=== PATIENT | female | born 1960 ===

== ENCOUNTER 2024-03-09 09:42 | Outpatient (AMB) | payer OTHER, SELFPAY ==
--- NOTE | 2024-03-09 09:56 | MHC.OFFVIS ---
Vital Signs 03/09/24 09:57 Height 5 ft 3 in Weight 155 lb BMI 27.5 BP 100/88 Blood Pressure Location Rt brachial Position Sitting Pulse 84 Pulse Source Pulse Oximeter Pulse Oximetry (%) 98 Oxygen Delivery Method Room Air Intake Visit Reasons: ENP-Persistent Dizziness/Headaches-CONF Intake Note: Patient presents for persistent dizziness and headaches, Dizziness and sharp pain on the side of quaker that last very short period Allergies atorvastatin [From Lipitor] Allergy (Severe, Verified 03/09/24 09:59) muscle pain HPI Comments Details: Right-handed 63-yr-old female presents for new pt evaluation of headache disorder. Pt reports she has been having epsiodes of dizziness, blurry vision and head pain for many years. Had eye exam, and was given glasses. PMH and ROS are notable for:? General: feeling tired after brief physical activity. H/o right breast cancer- pt states around 2010- lumpectomy, Radiation tx. Has been having left breast s/s- itching- referred for US. f/b [facility] breast clinic. Musckuloskeletal: arthritis. but no usual neck or back pain Cramps: leg cramps Mood d/o: Anxiety- may feel this CV disease: HLD- on statin. h/o Anemia Endocrine or metabolic d/o: Pre-Diabetes GI d/o: Constipation, GERD SOFTWARE SUPPORT ENGINEER: postmenopausal Family history of migraine or other headache disorder: mother, sister, aunt Pertinent denials include: Denies diplopia. History of concussion/head injury, Sleep d/o, Respiratory d/o, Clotting or hematology d/o, Endocrine or metabolic d/o, History of seizure, syncope, or drop attacks Lifestyle considerations: Sleep routine: Usual bedtime: 9pm and wake-up time: 6am Sleep difficulties: Denies, but may ruminate if something is on her mind. Sometimes has leg cramps. Restless legs- cannot stay still, creepy crawling sensation. 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 Typical headache characteristics: Prodrome symptoms: unsure Aura: none Pain intensity: varies, comes on severe Location, quality, characteristics: Brief sharp pain in the temples f/b throbbing pain and not right in space dizziness Associated symptoms: blurry vision, photophobia, nausea, lightheadedness, fatigue, cognitive difficulties, activity intolerance. Postdrome: unsure Triggers: bending over and getting back up Time of day: During the day Duration and Frequency: daily, last for hours. How does headache impact your life? has to sit down Current acute medication use/interventions: nothing. sometimes uses OTC tear gtts Current preventative medication use: none Non-pharmacological interventions: rest PFSH Surgical History (Updated 03/09/24 @ 10:00 by JESSICA Toth) Hx of appendectomy H/O arthroscopic knee surgery H/O lumpectomy Family History (Updated 03/09/24 @ 10:01 by JESSICA Toth) Father Heart disease Parkinson disease Mother Cancer Diabetes Social History (Updated 03/09/24 @ 10:01 by JESSICA Toth) Alcohol intake: never Patient Tobacco Use Status: Never used Tobacco Physical Exam Vital Signs: Last Vital Signs Pulse 84 03/09/24 09:57 BP 100/88 03/09/24 09:57 Pulse Ox 98 03/09/24 09:57 Oxygen Delivery Method Room Air 03/09/24 09:57 BMI result Body Mass Index 27.5 Const Orientation/consciousness: patient oriented x3 HEENT Head: Yes normocephalic Resp Effort & Inspection: normal respiratory effort and able to speak in complete sentences Neuro Other: Mild bilateral facial tenderness on palpation General: patient oriented x3 Cranial nerves: Yes CN's II-XII intact bilaterally Cognition (Neuro): normal cognition Gait exam (Neuro): Normal gait present Motor exam (neuro): 5/5 motor strength present throughout Deep tendon reflexes (DTR's): Right triceps reflex intensity grade: 2+, Left triceps reflex intensity grade: 2+, Rt Biceps (C5, C6): 2+, Left biceps reflex intensity grade: 2+, Right brachioradialis reflex intensity grade: 2+, Left brachioradialis reflex intensity grade: 2+, Right patellar reflex intensity grade: 2+ and Left patellar reflex intensity grade: 2+ Coordination: [id number] test normal, tandem gait normal and Romberg test negative Pupils: Normal pupillary reactivity/response: bilateral Psych Appearance: grossly normal Mental Status: mental status grossly normal Speech and movement: Normal speech and movement present Affect: normal affect Attitude: cooperative Thought process: Normal thought process present Assessment & Plan Assessment & Plan (1) Headache: Code(s): R51.9 - Headache, unspecified Category: Medical (2) Blurry vision: Code(s): H53.8 - Other visual disturbances Category: Medical (3) Dizziness: Code(s): R42 - Dizziness and giddiness Category: Medical (4) Anemia: Code(s): D64.9 - Anemia, unspecified Category: Medical (5) Leg cramps: Code(s): R25.2 - Cramp and spasm Category: Medical (6) Restless leg syndrome: Code(s): G25.81 - Restless legs syndrome Category: Medical Plan Pt advised to undergo: Lab workup for common etiologies of headache, vision changes, fatigue, and restless leg. Brain MRI with and without contrast to assess for secondary etiologies of headache, dizziness, blurry vision For overall headache management: Optimize good self-care, including but not limited to maintaining a healthy diet, adequate fluid intake, adequate sleep, and engaging in regular physical activity. Track headaches, especially after any treatment regimen changes. For acute headache treatment: Discussed importance of taking acute medications at the first sign of headache, however stressed importance of avoiding acute medication overuse (especially with combined headache medications). Trial Sumatriptan 100mg tab, 1/2 - 1 tab (50-100mg) at onset of headache, may repeat in 2 hours. Max of 2 tabs (200mg) per 24 hours. May adjunct with OTC Tylenol 650mg q 4 hours, Ibuprofen 600mg q 6 hours, or Naproxen 440mg q 12 hrs prn. Potential adverse effects of triptans, including but not limited to nausea, fatigue, chest tightness/tingling (usually passes within a few minutes), medication overuse headaches. Previous acute migraine medication trials: None Acute migraine medication contraindications: None at this time For headache prevention medication: Preventative medications should be taken routinely as prescribed for best effect, it may take several weeks for full effect to take effect. Start Riboflavin 400mg qam Start Magnesium 400mg qhs Previous migraine prevention medication trials: None Migraine prevention medication contraindications: None at this time Pt seen in collaboration w/ Dr Louann Wagner. Pt to follow-up in 6 months or sooner prn. Orders: Orders Vitamin B12 and Folate Today D64.9 - Anemia, unspecified, E78.5 - Hyperlipidemia, unspecified, G25.81 - Restless legs syndrome, M19.90 - Unspecified osteoarthritis, unspecified site, R25.2 - Cramp and spasm, R53.83 - Other fatigue, Z85.3 - Personal history of malignant neoplasm of breast Methylmalonic Acid Today D64.9 - Anemia, unspecified, E78.5 - Hyperlipidemia, unspecified, G25.81 - Restless legs syndrome, M19.90 - Unspecified osteoarthritis, unspecified site, R25.2 - Cramp and spasm, R53.83 - Other fatigue, Z85.3 - Personal history of malignant neoplasm of breast Homocysteine Today D64.9 - Anemia, unspecified, E78.5 - Hyperlipidemia, unspecified, G25.81 - Restless legs syndrome, M19.90 - Unspecified osteoarthritis, unspecified site, R25.2 - Cramp and spasm, R53.83 - Other fatigue, Z85.3 - Personal history of malignant neoplasm of breast IRON PROFILE Today D64.9 - Anemia, unspecified, E78.5 - Hyperlipidemia, unspecified, G25.81 - Restless legs syndrome, M19.90 - Unspecified osteoarthritis, unspecified site, R25.2 - Cramp and spasm, R53.83 - Other fatigue, Z85.3 - Personal history of malignant neoplasm of breast Ferritin Today D64.9 - Anemia, unspecified, E78.5 - Hyperlipidemia, unspecified, G25.81 - Restless legs syndrome, M19.90 - Unspecified osteoarthritis, unspecified site, R25.2 - Cramp and spasm, R53.83 - Other fatigue, Z85.3 - Personal history of malignant neoplasm of breast Creatine Kinase Total Today D64.9 - Anemia, unspecified, E78.5 - Hyperlipidemia, unspecified, G25.81 - Restless legs syndrome, M19.90 - Unspecified osteoarthritis, unspecified site, R25.2 - Cramp and spasm, R53.83 - Other fatigue, Z85.3 - Personal history of malignant neoplasm of breast MR head/brain wo/w con Today H53.8 - Other visual disturbances, R42 - Dizziness and giddiness, R51.9 - Headache, unspecified LINN Reflex Titer and Pattern Today D64.9 - Anemia, unspecified, E78.5 - Hyperlipidemia, unspecified, G25.81 - Restless legs syndrome, M19.90 - Unspecified osteoarthritis, unspecified site, R25.2 - Cramp and spasm, R53.83 - Other fatigue, Z85.3 - Personal history of malignant neoplasm of breast Rheumatoid Factor Today D64.9 - Anemia, unspecified, E78.5 - Hyperlipidemia, unspecified, G25.81 - Restless legs syndrome, M19.90 - Unspecified osteoarthritis, unspecified site, R25.2 - Cramp and spasm, R53.83 - Other fatigue, Z85.3 - Personal history of malignant neoplasm of breast TSH reflex Free T4 Today D64.9 - Anemia, unspecified, E78.5 - Hyperlipidemia, unspecified, G25.81 - Restless legs syndrome, M19.90 - Unspecified osteoarthritis, unspecified site, R25.2 - Cramp and spasm, R53.83 - Other fatigue, Z85.3 - Personal history of malignant neoplasm of breast Vitamin D 25-OH (D2 and D3) Today D64.9 - Anemia, unspecified, E78.5 - Hyperlipidemia, unspecified, G25.81 - Restless legs syndrome, M19.90 - Unspecified osteoarthritis, unspecified site, R25.2 - Cramp and spasm, R53.83 - Other fatigue, Z85.3 - Personal history of malignant neoplasm of breast Hemoglobin A1c Today D64.9 - Anemia, unspecified, E78.5 - Hyperlipidemia, unspecified, G25.81 - Restless legs syndrome, M19.90 - Unspecified osteoarthritis, unspecified site, R25.2 - Cramp and spasm, R53.83 - Other fatigue, Z85.3 - Personal history of malignant neoplasm of breast Complete Blood Count Auto Diff Today D64.9 - Anemia, unspecified, E78.5 - Hyperlipidemia, unspecified, G25.81 - Restless legs syndrome, M19.90 - Unspecified osteoarthritis, unspecified site, R25.2 - Cramp and spasm, R53.83 - Other fatigue, Z85.3 - Personal history of malignant neoplasm of breast Comprehensive Met. Panel Today D64.9 - Anemia, unspecified, E78.5 - Hyperlipidemia, unspecified, G25.81 - Restless legs syndrome, M19.90 - Unspecified osteoarthritis, unspecified site, R25.2 - Cramp and spasm, R53.83 - Other fatigue, Z85.3 - Personal history of malignant neoplasm of breast Erythrocyte Sedimentation Rate Today D64.9 - Anemia, unspecified, E78.5 - Hyperlipidemia, unspecified, G25.81 - Restless legs syndrome, M19.90 - Unspecified osteoarthritis, unspecified site, R25.2 - Cramp and spasm, R53.83 - Other fatigue, Z85.3 - Personal history of malignant neoplasm of breast CRP High Sensitivity Today D64.9 - Anemia, unspecified, E78.5 - Hyperlipidemia, unspecified, G25.81 - Restless legs syndrome, M19.90 - Unspecified osteoarthritis, unspecified site, R25.2 - Cramp and spasm, R53.83 - Other fatigue, Z85.3 - Personal history of malignant neoplasm of breast Medications: New sumatriptan succinate 50 - 100 mg orally at onset of headache, may repeat in 2 hrs PRN; max 2 tabs per day or 4 tabs/week (may take with Ibuprofen) 12 tabs 6RF migraine headache 30 days riboflavin (vitamin B2) 400 mg PO DAILY 30 tabs 6RF 30 days magnesium oxide may hold for loose stools 400 mg PO BEDTIME 30 tabs 6RF 30 days Coding Level of Care Code New Pt Level 4 (19522) Diagnoses Headache R51.9 Blurry vision H53.8 Dizziness R42 Anemia D64.9 Leg cramps R25.2 Restless leg syndrome G25.81
[2024-03-09 09:57] VITALS: BP 100/88; PULSE 84; O2SAT 98; BMI 27.5
== END 2024-03-09 11:29 | disposition home or self-care (01) ==
PROVIDERS: PCP Family Medicine; Visit Provider Nurse Practitioner Family
DX: R51.9 Headache, unspecified (principal); H53.8 Other visual disturbances; R42 Dizziness and giddiness; D64.9 Anemia, unspecified; R25.2 Cramp and spasm; G25.81 Restless legs syndrome
CPT/HCPCS: 99204

== ENCOUNTER → 2024-03-09 09:42 | Outpatient (BNVA) | payer OTHER, SELFPAY | PROVIDERS: PCP Family Medicine; Visit Provider Nurse Practitioner Family ==

== ENCOUNTER 2024-03-17 10:43 | Outpatient (REF) | payer OTHER, SELFPAY ==
[2024-03-17 11:03] LABS: MANUAL DIFF FLAG NO
[2024-03-17 11:07] LABS: Basophils Percent Auto 0.4 % (0-2); Eosinophils Absolute Auto 0.1 X10*3/uL (0.0-0.4); Eosinophils Percent Auto 0.7 % (0-4); Hematocrit 38.5 % (37.0-47.0); Hemoglobin 12.4 g/dl (12.0-16.0); Imm Gran Abs Auto 0.03 X10*3/uL (0.00-0.03); Imm Gran Pct Auto 0.4 % (0.0-0.4); Lymphocytes Absolute Auto 3.1 X10*3/uL (1.2-4.9); Lymphocytes Percent Auto 41.6 % (20-40); Mean Corpuscular HGB Conc 32.2 g/dl (31.0-35.0); Mean Corpuscular Hemoglobin 27.6 pg (27.0-33.0); Mean Corpuscular Volume 85.7 fL (80.0-98.0); Mean Platelet Volume 9.7 fL (9.4-12.3); Monocytes Absolute Auto 0.5 X10*3/uL (0.1-1.2); Monocytes Percent Auto 6.9 % (2-11); Neutrophils Absolute Auto 3.7 x10*3/uL (2.0-8.3); Platelet Count 348 X10*3/uL (160-400); Red Blood Count 4.49 X10*6/uL (4.20-5.50); Red Cell Distribution Width 13.8 % (11.0-16.0); White Blood Count 7.4 X10*3/uL (4.8-10.8)
[2024-03-17 11:28] LABS: Estimated Average Glucose 114 mg/dL; Hemoglobin A1c % 5.6 % (<6.0)
[2024-03-17 11:38] LABS: Alanine Aminotransferase 22 U/L (0-31); Albumin Level 4.1 g/dL (3.5-5.0); Alkaline Phosphatase 92 U/L (39-117); Anion Gap 14 (12-20); Aspartate Amino Transferase 20 U/L (5-31); Bilirubin Total 0.4 mg/dL (0.0-1.0); Blood Urea Nitrogen 14 mg/dL (9-16); Calcium 9.6 mg/dL (8.4-10.2); Carbon Dioxide 26 mmol/L (22-29); Chloride 105 mmol/L (96-108); Estimated Glomerular Filt Rate > 60; Glucose Random 94 mg/dL (60-115); Iron 88 mcg/dL (30-160); Percent Iron Saturation 31 % (15-50); Sodium 141 mmol/L (135-145); Total Iron Binding Capacity 281 mcg/dL (228-428); Total Protein 7.7 g/dL (6.5-8.0); Unsaturated Iron Binding 193 ug/dL
[2024-03-17 11:42] LABS: Rheumatoid Factor < 13.0 IU/mL (<15.0)
[2024-03-17 11:45] LABS: Erythrocyte Sedimentation Rate 36 MM/HR (0-20)
[2024-03-17 11:54] LABS: Ferritin 114 ng/mL (10-250); TSH reflex Free T4 2.63 uIU/mL (0.32-4.0)
[2024-03-17 12:07] LABS: Folate 10.8 ng/mL (> or = 4.0); Vitamin B12 302 pg/mL (200-900)
[2024-03-18 16:53] LABS: Homocysteine 12.4 umol/L (<10.4)
[2024-03-20 17:23] LABS: Vitamin D 25-OH, D2 5 ng/mL; Vitamin D 25-OH, D3 20 ng/mL; Vitamin D 25-OH, Total 25 ng/mL (30-100)
[2024-03-21 09:39] LABS: CRP High Sensitivity 4.4 mg/L
[2024-03-22 11:29] LABS: Methylmalonic Acid 104 nmol/L (69-390)
[2024-03-23 12:48] LABS: Anti Nuclear Antibody Screen NEGATIVE (NEGATIVE)
== END 2024-03-17 10:44 | disposition home or self-care (01) ==
LOC: HO.LAB 10:43
PROVIDERS: Visit Provider Nurse Practitioner Family
DX: D64.9 Anemia, unspecified (principal); R25.2 Cramp and spasm; G25.81 Restless legs syndrome; Z85.3 Personal history of malignant neoplasm of breast; R53.83 Other fatigue; E78.5 Hyperlipidemia, unspecified; M19.90 Unspecified osteoarthritis, unspecified site; Z13.1 Encounter for screening for diabetes mellitus
CPT/HCPCS: 36415; 80053; 82306; 82550; 82607; 82728; 82746; 83036; 83090; 83540; 83921; 84443; 85025; 85652; 86038; 86141; 86431

== ENCOUNTER 2024-04-15 07:31 | Outpatient (REF) | payer OTHER, SELFPAY ==
--- NOTE | ~2024-04-15 | MR_ITS ---
EXAMINATION: MR BRAIN WITHOUT CONTRAST CLINICAL INFORMATION: Dizziness and giddiness. Headache. Blurred vision. Self-reported sharp pain that comes and goes every other day. COMPARISON: None available. TECHNIQUE: MRI of the brain was obtained using routine sequences without contrast. FINDINGS: Diffusion-weighted images demonstrate no evidence of acute infarcts. Minimal diffuse commensurate prominence of ventricles and sulci is noted. No focal parenchymal lesions of the brain or abnormal extra-axial fluid collections visualized. Susceptibility weighted images demonstrate no evidence of acute or chronic hemorrhage within the brain parenchyma. The craniocervical junction cerebellar tonsils are normal in configuration. Incidental note is made of convex inward configuration of the superior margin of the pituitary, a frequently encountered asymptomatic anatomic variant. No marrow signal abnormalities identified. Normal flow-related signal intensity is noted in the major intracranial vessels and dural sinuses. The orbits and globes are normal in appearance. No significant mucosal thickening or retained secretions identified in the paranasal sinuses, mastoid air cells and middle ear cavities. MR/MR head/brain wo con IMPRESSION: Normal unenhanced MRI of the brain.
== END 2024-04-15 07:32 | disposition home or self-care (01) ==
LOC: HO.MRI 07:31
PROVIDERS: PCP Family Medicine; Visit Provider Nurse Practitioner Family
DX: R42 Dizziness and giddiness (principal); R51.9 Headache, unspecified; H53.8 Other visual disturbances
CPT/HCPCS: 70551